=== PATIENT | female | born 1985 | race Caucasian/White ===

== ENCOUNTER 2019-06-25 14:21 | Outpatient (REF) | payer MEDICAID, SELFPAY ==
[2019-06-25 20:49] LABS: Abs Immature Grans 0.01 k/cumm (0.0-0.09); Absolute Basophil Count 0.01 k/cumm (0.0-0.2); Absolute Eosinophil Count 0.06 k/cumm (0.0-0.7); Absolute Lymphocyte Count 2.24 k/cumm (1.2-3.4); Absolute Monocyte Count 0.64 k/cumm (0.11-0.7); Absolute Neutrophil Count 4.81 k/cumm (1.2-6.7); Basophils % 0.1; Eosinophils % 0.8; HCT 40.9 % (36.0-46.0); HGB 14.2 g/dL (12.0-15.5); Immature Grans % 0.1 %; Lymphocytes % 28.8; Mean Corp. HGB Concentration 34.7 g/dL (32.0-36.0); Mean Corpuscular Hemoglobin 33.1 pg (27.0-33.0); Mean Corpuscular Volume 95.3 fL (80-95); Monocytes % 8.2; Platelet Count 514 x1000/uL (130-400); RBC 4.29 m/cumm (4.00-5.20); White Blood Cell Count 7.77 k/cumm (4.4-10.8)
[2019-06-25 21:15] LABS: ALT 33 U/L (14-59); AST 24 U/L (15-37); Albumin 4.5 g/dL (3.4-5.0); Alkaline Phosphatase 38 U/L (46-116); Anion Gap 7.9 mmol/L (3-11); BUN 7 mg/dL (7-18); Bilirubin, Total 0.5 mg/dL (0.2-1.0); CO2 29.1 mmol/L (21.0-32.0); CREATININE 0.76 mg/dL (0.55-1.02); Calcium 9.2 mg/dL (8.5-10.1); Chloride 103 mmol/L (98-107); FREE T4 1.21 ng/dL (0.76-1.46); Glucose 75 mg/dL (74-106); Potassium 3.9 mmol/L (3.5-5.1); Sodium 140 mmol/L (136-145); TSH 0.71 uIU/mL (0.36-3.74); Total Protein 7.3 g/dL (6.4-8.2)
[2019-06-26 16:26] LABS: T3, Total 121 ng/dL (97-169)
[2019-06-27 09:49] LABS: Thyroglobulin Antibody <15 U/mL (<=60)
[2019-06-27 10:17] LABS: Thyroperoxidase Antibody <28 U/mL (<=60)
== END 2019-06-25 14:41 ==
LOC: NCHCN 14:21
PROVIDERS: PCP Physician Assistant; Visit Provider Physician Assistant
DX: R00.0 Tachycardia, unspecified (principal); R00.2 Palpitations; R42 Dizziness and giddiness; F41.8 Other specified anxiety disorders; G47.9 Sleep disorder, unspecified
CPT/HCPCS: 80053; 84439; 84443; 84480; 85025; 86376; 86800

== ENCOUNTER 2019-12-29 18:54 | Outpatient (REF) | payer MEDICAID, SELFPAY ==
[2019-12-29 18:53] LABS: Abs Immature Grans 0.02 10^3/uL (0.0-0.06); Absolute Basophil Count 0.03 10^3/uL (0.0-0.2); Absolute Eosinophil Count 0.09 10^3/uL (0.0-0.7); Absolute Monocyte Count 0.53 10^3/uL (0.1-0.8); Absolute Neutrophil Count 4.74 10^3/uL (1.2-6.7); Basophils % 0.4; Eosinophils % 1.1; HCT 37.4 % (36.0-46.0); HGB 12.6 g/dL (11.2-15.7); Immature Grans % 0.2; Lymphocytes % 34.1; MCH 32.7 pg (27.0-33.0); MCHC 33.7 % (32.0-36.0); MCV 97.1 fL (80-95); MPV 8.1 fL (8.0-11.0); Monocytes % 6.5; Neutrophils % 57.7; Nucleated RBC 0 %; Platelet Count 422 10^3/uL (130-400); RBC 3.85 10^6/uL (3.93-5.22); RDW 11.2 % (11.7-14.6); WBC 8.21 10^3/uL (4.4-10.8)
[2019-12-29 19:13] LABS: Mono Screening Negative (Negative)
[2020-01-01 01:18] LABS: SARS-CoV-2 RNA Undetected (Undetected)
== END 2019-12-29 19:14 ==
LOC: NCHCN 18:54
PROVIDERS: PCP Internal Medicine; Visit Provider Internal Medicine
DX: J02.9 Acute pharyngitis, unspecified (principal)
CPT/HCPCS: U0003; 85025; 86308

== ENCOUNTER 2020-01-14 19:03 | Outpatient (REF) | payer MEDICAID, SELFPAY ==
[2020-01-14 21:57] LABS: Calculated LDL 82 mg/dL (<100); Cholesterol 166 mg/dL (<200); HDL Cholesterol 68 mg/dL (40-60); Triglyceride 84 mg/dL (<150)
== END 2020-01-14 19:23 ==
LOC: NCHCN 19:03
PROVIDERS: PCP Internal Medicine; Visit Provider Physician Assistant
DX: R00.2 Palpitations (principal); R00.0 Tachycardia, unspecified
CPT/HCPCS: 80061

== ENCOUNTER 2020-04-19 20:24 | Outpatient (REF) | payer MEDICAID, SELFPAY ==
[2020-04-21 17:33] LABS: SARS-CoV-2 RNA Undetected (Undetected); SARS-CoV-2 Specimen Source Nasal
== END 2020-04-19 20:44 ==
LOC: NCHCN 20:24
PROVIDERS: PCP Internal Medicine; Visit Provider Physician Assistant
DX: Z20.828 Contact with and (suspected) exposure to other viral communicable diseases (principal)
CPT/HCPCS: U0003

== ENCOUNTER 2020-10-12 15:21 | Outpatient (REF) | payer MEDICAID, SELFPAY ==
--- NOTE | 2020-10-12 14:15 | PAPFT_PTH ---
PATIENT: Hawa Dinh LOC: [facility] U#:[id number] AGE/SX: 35/F ROOM: RE10/12/[address]: Dory Patel : 1985 BED: DIS: 10/12/2020 SPEC #: [id number] RECD: 10/12/20 18:26 STATUS: YOSELIN RECelio #: [id number] NOEMY: 10/12/20 14:[address]: Dory Patel DEPT: [facility] Cytology RECD BY: Katerina Cortes ENTERED: 10/12/20 18:26 SP TYPE: PAPFT OTHR DR: Alexander Ku Tissues: 1 - CX/ENDOCX FOR PAP SMEARS Procedures: PAP THIN PREP/[facility] Screening Comments: [id number] (CHLAMYDIA/GC) (UNSATISFACTORY FOR EVALUATION)
[2020-10-13 14:07] LABS: Chlamydia Result Negative (Negative); GC Result Negative (Negative)
== END 2020-10-12 15:22 | disposition home or self-care (01) ==
LOC: NCHCN 15:21
PROVIDERS: PCP Internal Medicine; Visit Provider Physician Assistant
DX: Z12.4 Encounter for screening for malignant neoplasm of cervix (principal); Z01.419 Encounter for gynecological examination (general) (routine) without abnormal findings; R87.615 Unsatisfactory cytologic smear of cervix
CPT/HCPCS: 87491; 87591; 88142

== ENCOUNTER 2020-12-16 13:28 | Outpatient (REF) | payer MEDICAID, SELFPAY ==
[2020-12-18 12:25] LABS: COVID-19 RT-PCR UVMMC Result Negative (Negative)
== END 2020-12-16 13:29 | disposition home or self-care (01) ==
LOC: NCHCN 13:28
PROVIDERS: PCP Internal Medicine; Visit Provider Physician Assistant
DX: Z20.822 Contact with and (suspected) exposure to COVID-19 (principal)
CPT/HCPCS: U0003

== ENCOUNTER 2021-10-03 12:37 | Outpatient (REF) | payer MEDICAID, SELFPAY ==
--- NOTE | 2021-09-30 14:30 | PAPFT_PTH ---
PATIENT: Hawa Dinh LOC: [facility] U#:[id number] AGE/SX: 36/F ROOM: RE10/03/[address]: Dory Patel : 1985 BED: DIS: 10/03/2021 SPEC #: [id number] RECD: 10/03/21 15:49 STATUS: YOSELIN RECelio #: [id number] NOEMY: 09/30/21 14:[address]: Dory Patel DEPT: [facility] Cytology RECD BY: Marcelina Piña ENTERED: 10/03/21 15:49 SP TYPE: PAPFT OTHR DR: Alexander Ku Tissues: 1 - CX/ENDOCX FOR PAP SMEARS Procedures: PAP THIN PREP/[facility] Screening HPV DNA PROBE Comments: [id number]
== END 2021-10-03 12:38 | disposition home or self-care (01) ==
LOC: LBN 12:37
PROVIDERS: PCP Internal Medicine; Visit Provider Physician Assistant
DX: Z01.419 Encounter for gynecological examination (general) (routine) without abnormal findings (principal)
CPT/HCPCS: 88142; 87624

== ENCOUNTER 2023-11-15 15:58 | Outpatient (REF) | payer MEDICAID, SELFPAY ==
[2023-11-15 19:10] LABS: HCT 39.7 % (36.0-46.0); HGB 13.9 g/dL (11.2-15.7); MCH 34.6 pg (27.0-33.0); MCV 99 fL (80-95); MPV 8.5 fL (8.0-11.0); Platelet Count 454 10^3/uL (130-400); RBC 4.02 10^6/uL (3.93-5.22); WBC 9.15 10^3/uL (4.4-10.8)
[2023-11-15 19:35] LABS: ALT 29 U/L (14-59); AST 19 U/L (15-37); Alkaline Phosphatase 49 U/L (46-116); BUN 13 mg/dL (7-18); Bilirubin, Total 0.38 mg/dL (0.2-1.0); CREATININE 0.8 mg/dL (0.55-1.02); Calcium 8.9 mg/dL (8.5-10.1); Chloride 103 mmol/L (98-107); Estimated GFR 97.26 (mL/min/1.73m2); Glucose 75 mg/dL (74-106); Magnesium 1.9 mg/dL (1.8-2.4); Potassium 4.1 mmol/L (3.5-5.1); Sodium 139 mmol/L (136-145); TSH (W/Ref FT4) 0.45 uIU/mL (0.36-3.74); Total Protein 7.4 g/dL (6.4-8.2)
[2023-11-15 20:15] LABS: Iron 78 ug/dL (50-170); Total Iron Binding Capacity 307 ug/dL (250-450); Transferrin Sat 25 % (15-50)
[2023-11-15 20:40] LABS: Ferritin 106 ng/mL (8-252); Folate 6.7 ng/mL (8.6-20.0); Vitamin B12 1030 pg/mL (193-986); Vitamin D 25 Total 25.7 ng/mL (30-100)
== END 2023-11-15 15:59 | disposition home or self-care (01) ==
LOC: NCHCN 15:58
PROVIDERS: PCP Internal Medicine; Visit Provider Physician Assistant
DX: N94.4 Primary dysmenorrhea (principal); E55.9 Vitamin D deficiency, unspecified; E53.8 Deficiency of other specified B group vitamins; R79.89 Other specified abnormal findings of blood chemistry; Z72.4 Inappropriate diet and eating habits
CPT/HCPCS: 80053; 82306; 85027; 82607; 82728; 82746; 83540; 83550; 83735; 84443